=== PATIENT | male | born 1985 | race Two or more races ===

== ENCOUNTER 2018-06-23 19:23 | Emergency (ER) | payer OTHER ==
[~2018-06-23] VITALS: Ht 180.3 cm; Wt 72.6 kg
[2018-06-23 19:39] VITALS: BP 144/71
== END 2018-06-23 20:11 ==
LOC: ER 19:39
DX: L03.114 Cellulitis of left upper limb (principal); F12.90 Cannabis use, unspecified, uncomplicated; F17.200 Nicotine dependence, unspecified, uncomplicated; Z59.0 Homelessness